=== PATIENT | female | born 1975 | race Caucasian/White ===

== ENCOUNTER 2018-03-14 10:11 | Emergency (ER) | payer MEDICAID ==
[2018-03-14 11:15] LABS: WHITE BLOOD COUNT 7.7 10^3/ul (4.8-10.8)
[2018-03-14 11:15] LABS: ABNORMAL IP MESSAGE 1; HEMATOCRIT 36.8 % (37.0-47.0); HEMOGLOBIN 11.2 g/dl (12.0-16.0); MEAN CORPUSCULAR HEMOGLOBIN 21.2 pg (29.0-33.0); MEAN CORPUSCULAR HGB CONC 30.4 g/dl (32.0-37.0); MEAN CORPUSCULAR VOLUME 69.6 fl (82.0-101.0); MEAN PLATELET VOLUME 10.1 fl (7.4-10.4); PLATELET COUNT 237 10^3/UL (140-415); RED BLOOD COUNT 5.29 10^6/ul (4.20-5.40)
[2018-03-14 11:32] LABS: ADD MAN DIFF? YES; POSITIVE DIFF @See below
[2018-03-14 12:34] LABS: UR CLARITY BLOODY (CLEAR); UR COLOR RED (YELLOW)
[2018-03-14 12:35] LABS: ADD UMIC YES; UR BILIRUBIN (Dip) NEGATIVE (NEGATIVE); UR BLOOD (Dip) 3+ mg/dL (NEGATIVE); UR GLUCOSE (Dip) NEGATIVE (NEGATIVE); UR KETONES (Dip) NEGATIVE (NEGATIVE); UR LEUKOCYTE ESTERASE (Dip) NEGATIVE Leu/ul (NEGATIVE); UR NITRITE (Dip) NEGATIVE (NEGATIVE); UR TOTAL PROTEIN (Dip) NEGATIVE (NEGATIVE); UR UROBILINOGEN (Dip) 0.2 E.U./dL mg/dL (NEGATIVE); URINE PH (Dip) 6.5 (5.0-9.0)
[2018-03-14 12:36] LABS: UR BACTERIA RARE /HPF (NONE SEEN); UR SQUAMOUS EPITHELIAL CELL RARE /HPF (FEW); URINE RBCS >200 /HPF (0)
[2018-03-14 12:45] LABS: ABO/RH TYPE 1 1
[2018-03-14 13:07] LABS: ANISOCYTOSIS 3+ (0-0); BAND NEUTROPHILS #M 0.1 10^3/ul (0.0-0.6); BAND NEUTROPHILS % (M) 2 % (0-4); BASOPHILS % (M) 1 % (0-2); EOSINOPHILS % (M) 1 % (0-7); LYMPHOCYTES #M 1.6 10^3/ul (0.8-2.9); LYMPHOCYTES % (M) 21 % (15-51); MICROCYTOSIS 3+ (0-0); MONOCYTE #M 0.3 10^3/ul (0.3-0.9); MONOCYTES % (M) 5 % (0-11); OVALOCYTES 1+ (0-0); PLATELET ESTIMATE NORMAL; POIKILOCYTOSIS 2+ (0-0); POLYCHROMASIA 3+ (0-0); REACTIVE LYMPHOCYTES #M 0.5 10^3/ul (0.0-0.0); REACTIVE LYMPHOCYTES% (M) 7 % (0-0); SEG NEUT #M 4.9 10^3/ul (1.6-7.5); SEGMENTED NEUTROPHILS (M) % 63 % (39-77); SMUDGE%M 17 % (0-0)
== END 2018-03-14 13:09 | disposition home or self-care (01) ==
LOC: FTE 10:11
PROVIDERS: Pediatrics
DX: O20.9 Hemorrhage in early pregnancy, unspecified (principal); R10.2 Pelvic and perineal pain; Z3A.11 11 weeks gestation of pregnancy
CPT/HCPCS: 36415; 76801; 81001; 82962; 84702; 85025; 86900; 86901; 99285-25

== ENCOUNTER 2018-09-18 12:48 | Outpatient (CLI) | payer MEDICAID ==
[2018-09-18] MEDS: ACETAMINOPHEN 500 MG TAB PO (14:08)
[2018-09-18 14:14] LABS: ADD MAN DIFF? NO
[2018-09-18 14:16] LABS: WHITE BLOOD COUNT 5.9 10^3/ul (4.8-10.8)
[2018-09-18 14:16] LABS: BASOPHILS % 0.3 % (0.0-2.0); HEMATOCRIT 36.2 % (37.0-47.0); HEMOGLOBIN 11.8 g/dl (12.0-16.0); LYMPHOCYTES # 0.6 10^3/ul (0.8-2.9); LYMPHOCYTES % 10.3 % (15.0-51.0); MEAN CORPUSCULAR HEMOGLOBIN 27.3 pg (29.0-33.0); MEAN CORPUSCULAR HGB CONC 32.6 g/dl (32.0-37.0); MEAN CORPUSCULAR VOLUME 83.6 fl (82.0-101.0); MEAN PLATELET VOLUME 10.9 fl (7.4-10.4); MONOCYTE # 0.3 10^3/ul (0.3-0.9); MONOCYTES % 5.5 % (0.0-11.0); NEUTROPHIL # 4.9 10^3/ul (1.6-7.5); NEUTROPHILS % 83.4 % (39.0-77.0); PLATELET COUNT 151 10^3/UL (140-415); RED BLOOD COUNT 4.33 10^6/ul (4.20-5.40); RED CELL DISTRIBUTION WIDTH 14.2 % (11.5-14.5)
[2018-09-18 14:35] LABS: ALANINE AMINOTRANSFERASE 19 IU/L (13-69); ALBUMIN 3.9 g/dl (3.3-4.9); ALKALINE PHOSPHATASE 135 IU/L (42-121); ANION GAP 11 (5-13); ASPARTATE AMINO TRANSFERASE 38 IU/L (15-46); BILIRUBIN,INDIRECT 0.3 mg/dl (0-1.1); BILIRUBIN,TOTAL 0.3 mg/dl (0.2-1.3); BLOOD UREA NITROGEN 4 mg/dl (7-20); CALCIUM 9.1 mg/dl (8.4-10.2); CARBON DIOXIDE 21 mmol/L (21-31); CHLORIDE 104 mmol/L (97-110); CREATININE 0.46 mg/dl (0.44-1.00); Estimated GFR > 60 mL/min (>60); GLUCOSE 96 mg/dl (70-220); POTASSIUM 4.3 mmol/L (3.5-5.1); SODIUM 136 mmol/L (135-144); TOTAL PROTEIN 7.8 g/dl (6.1-8.1); URIC ACID 4.3 mg/dl (3.1-7.9)
[2018-09-18 14:37] LABS: ADD UMIC YES; UR ASCORBIC ACID 40 mg/dL (NEGATIVE); UR BACTERIA FEW /HPF (NONE SEEN); UR BILIRUBIN (Dip) NEGATIVE (NEGATIVE); UR BLOOD (Dip) NEGATIVE (NEGATIVE); UR CLARITY SLIGHTLY CLOUDY (CLEAR); UR COLOR YELLOW (YELLOW); UR GLUCOSE (Dip) NEGATIVE (NEGATIVE); UR KETONES (Dip) 2+ mg/dL (NEGATIVE); UR LEUKOCYTE ESTERASE (Dip) 3+ Leu/ul (NEGATIVE); UR MUCUS FEW /HPF (NONE SEEN); UR NITRITE (Dip) NEGATIVE (NEGATIVE); UR RBC 4 /HPF (0-5); UR SPECIFIC GRAVITY (Dip) 1.017 (1.003-1.030); UR SQUAMOUS EPITHELIAL CELL MANY /HPF (FEW); UR TOTAL PROTEIN (Dip) NEGATIVE (NEGATIVE); UR UROBILINOGEN (Dip) NEGATIVE (NEGATIVE); UR WBC > 182 /HPF (0-5)
== END 2018-09-18 16:20 | disposition home or self-care (01) ==
LOC: OBT 12:48 → L-D 12:48 → OBT 16:20
DX: O24.414 Gestational diabetes mellitus in pregnancy, insulin controlled (principal); Z3A.37 37 weeks gestation of pregnancy
CPT/HCPCS: 80053; 81001; 84560; 85025

== ENCOUNTER 2018-09-30 08:15 | Inpatient (IN) | payer MEDICAID ==
[2018-09-30] MEDS ORDERED: LACTATED RINGER'S 1,000 ML IV (08:24)
[2018-09-30] MEDS ORDERED: LIDOCAINE 1% (MPF) 30 ML INJ INJ (08:30)
[2018-09-30] MEDS ORDERED: BUTORPHANOL 1 MG INJ IV (08:30)
[2018-09-30] MEDS ORDERED: BUTORPHANOL 2 MG INJ IV (08:30)
[2018-09-30] MEDS ORDERED: OXYTOCIN 30 UNITS/LR 500 ML IV (08:30)
[2018-09-30] MEDS ORDERED: METHYLERGONOVINE 0.2 MG INJ IM (08:30)
[2018-09-30] MEDS ORDERED: IBUPROFEN 600 MG TAB PO (08:30)
[2018-09-30 09:22] LABS: ADD MAN DIFF? NO
[2018-09-30 09:30] LABS: WHITE BLOOD COUNT 7.3 10^3/ul (4.8-10.8)
[2018-09-30 09:30] LABS: BASOPHILS % 0.3 % (0.0-2.0); EOSINOPHILS # 0.1 10^3/ul (0.0-0.5); EOSINOPHILS % 0.8 % (0.0-7.0); HEMOGLOBIN 12.2 g/dl (12.0-16.0); LYMPHOCYTES % 26.8 % (15.0-51.0); MEAN CORPUSCULAR HEMOGLOBIN 27.4 pg (29.0-33.0); MEAN CORPUSCULAR HGB CONC 33.9 g/dl (32.0-37.0); MEAN CORPUSCULAR VOLUME 80.7 fl (82.0-101.0); MEAN PLATELET VOLUME 10.9 fl (7.4-10.4); MONOCYTE # 0.5 10^3/ul (0.3-0.9); MONOCYTES % 6.6 % (0.0-11.0); NEUTROPHIL # 4.8 10^3/ul (1.6-7.5); NEUTROPHILS % 65.1 % (39.0-77.0); PLATELET COUNT 169 10^3/UL (140-415); RED BLOOD COUNT 4.46 10^6/ul (4.20-5.40); RED CELL DISTRIBUTION WIDTH 13.9 % (11.5-14.5)
[2018-09-30 09:32] LABS: ADD UMIC YES; UR ASCORBIC ACID NEGATIVE (NEGATIVE); UR BILIRUBIN (Dip) NEGATIVE (NEGATIVE); UR BLOOD (Dip) 1+ mg/dL (NEGATIVE); UR CLARITY SLIGHTLY CLOUDY (CLEAR); UR COLOR YELLOW (YELLOW); UR GLUCOSE (Dip) NEGATIVE (NEGATIVE); UR KETONES (Dip) NEGATIVE (NEGATIVE); UR LEUKOCYTE ESTERASE (Dip) 1+ Leu/ul (NEGATIVE); UR NITRITE (Dip) NEGATIVE (NEGATIVE); UR RBC 0 /HPF (0-5); UR SPECIFIC GRAVITY (Dip) 1.009 (1.003-1.030); UR SQUAMOUS EPITHELIAL CELL FEW /HPF (FEW); UR TOTAL PROTEIN (Dip) NEGATIVE (NEGATIVE); UR UROBILINOGEN (Dip) NEGATIVE (NEGATIVE); UR WBC 11 /HPF (0-5)
[2018-09-30 09:52] LABS: ALANINE AMINOTRANSFERASE 16 IU/L (13-69); ALBUMIN 3.8 g/dl (3.3-4.9); ALBUMIN/GLOBULIN RATIO 0.97; ALKALINE PHOSPHATASE 150 IU/L (42-121); ANION GAP 11 (5-13); ASPARTATE AMINO TRANSFERASE 23 IU/L (15-46); BILIRUBIN,INDIRECT 0.3 mg/dl (0-1.1); BILIRUBIN,TOTAL 0.3 mg/dl (0.2-1.3); BLOOD UREA NITROGEN 6 mg/dl (7-20); CARBON DIOXIDE 23 mmol/L (21-31); CHLORIDE 105 mmol/L (97-110); CREATININE 0.43 mg/dl (0.44-1.00); Estimated GFR > 60 mL/min (>60); GLUCOSE 101 mg/dl (70-220); POTASSIUM 3.8 mmol/L (3.5-5.1); SODIUM 139 mmol/L (135-144); TOTAL PROTEIN 7.7 g/dl (6.1-8.1); URIC ACID 4.1 mg/dl (3.1-7.9)
[2018-09-30 09:53] LABS: PARTIAL THROMBOPLASTIN TIME 25.4 Sec (23.0-35.0); PROTIME 12.3 Sec (11.9-14.9)
[2018-09-30] MEDS: MISOPROSTOL 50 MCG CAPSULE PO ×4 (10:33→21:00)
[2018-09-30] MEDS: LACTATED RINGER'S 1,000 ML IV ×2 (10:34→20:41)
[2018-09-30] MEDS: DEXTROSE 5%-LR 1,000 ML IV ×2 (11:21→19:13)
[2018-09-30 16:23] LABS: RAPID PLASMA REAGIN NONREACTIVE (NR)
[2018-09-30] MEDS: OXYTOCIN 30 UNITS/LR 500 ML IV (20:40)
[2018-09-30] MEDS ORDERED: ONDANSETRON 4 MG INJ IV (22:30)
[2018-09-30] MEDS ORDERED: NALOXONE (0.4 MG/ML) INJ IV (22:30)
[2018-10-01] MEDS: DEXTROSE 5%-LR 1,000 ML IV (00:24)
[2018-10-01] MEDS: LACTATED RINGER'S 1,000 ML IV ×5 (00:24→21:55)
[2018-10-01] MEDS: MISOPROSTOL 50 MCG CAPSULE PO ×2 (01:00→05:00)
[2018-10-01] MEDS: FENTAnyl 2MCG/ML-ROPIV 0.2% 100 ML BAG EPI ×3 (01:35→21:19)
[2018-10-01] MEDS: DIPHENHYDRAMINE 50 MG INJ IV (02:37)
[2018-10-01] MEDS: CARBOPROST 250 MCG INJ IM (20:08)
[2018-10-01] MEDS: MISOPROSTOL 200 MCG TAB PR (20:09)
[2018-10-01] MEDS: PIPER-TAZO 3.375 GM IV (PMX) 100 ML IVPB (20:52)
[2018-10-01 21:08] LABS: WHITE BLOOD COUNT 18.4 10^3/ul (4.8-10.8)
[2018-10-01 21:08] LABS: HEMATOCRIT 30.5 % (37.0-47.0); HEMOGLOBIN 10.2 g/dl (12.0-16.0); MEAN CORPUSCULAR HEMOGLOBIN 28.3 pg (29.0-33.0); MEAN CORPUSCULAR HGB CONC 33.4 g/dl (32.0-37.0); MEAN CORPUSCULAR VOLUME 84.5 fl (82.0-101.0); MEAN PLATELET VOLUME 11.4 fl (7.4-10.4); PLATELET COUNT 207 10^3/UL (140-415); RED BLOOD COUNT 3.61 10^6/ul (4.20-5.40); RED CELL DISTRIBUTION WIDTH 14.5 % (11.5-14.5)
[2018-10-01 21:09] LABS: POSITIVE DIFF @See below
[2018-10-01 21:10] LABS: ADD MAN DIFF? YES
[2018-10-01] MEDS: OXYTOCIN 30 UNITS/LR 500 ML IV ×2 (21:56)
[2018-10-01 22:54] LABS: ANISOCYTOSIS 3+ (0-0); BAND NEUTROPHILS #M 0.7 10^3/ul (0.0-0.6); BAND NEUTROPHILS % (M) 4 % (0-4); BURR CELLS 2+ (0-0); LYMPHOCYTES #M 1.1 10^3/ul (0.8-2.9); LYMPHOCYTES % (M) 6 % (15-51); MICROCYTOSIS 3+ (0-0); MONOCYTE #M 0.3 10^3/ul (0.3-0.9); MONOCYTES % (M) 2 % (0-11); PLATELET ESTIMATE NORMAL; POIKILOCYTOSIS 1+ (0-0); POLYCHROMASIA 1+ (0-0); SEG NEUT #M 16.3 10^3/ul (1.6-7.5); SEGMENTED NEUTROPHILS (M) % 88 % (39-77); SMUDGE%M 24 % (0-0)
[2018-10-01] MEDS ORDERED: DIBUCAINE 1% 30 GM OINT TOP (23:30)
[2018-10-01] MEDS ORDERED: ACETAMINOPHEN 325 MG TAB PO (23:30)
[2018-10-01] MEDS ORDERED: OXYTOCIN 30 UNITS/LR 500 ML IV (23:30)
[2018-10-01] MEDS ORDERED: CARBOPROST 250 MCG INJ IM (23:30)
[2018-10-01] MEDS ORDERED: MISOPROSTOL 200 MCG TAB PR (23:30)
[2018-10-02] MEDS ORDERED: PIPER-TAZO 3.375 GM IV (PMX) 100 ML IVPB
[2018-10-02] MEDS: PIPER-TAZO 3.375 GM IV (PMX) 100 ML IVPB ×3 (00:50→11:55)
[2018-10-02] MEDS: LACTATED RINGER'S 1,000 ML IV* ×4 (04:40→23:08)
[2018-10-02] MEDS: IBUPROFEN 600 MG TAB PO ×4 (05:42→18:13)
[2018-10-02] MEDS: FENTAnyl 2MCG/ML-ROPIV 0.2% 100 ML BAG EPI (05:44)
[2018-10-02 06:42] LABS: WHITE BLOOD COUNT 17.2 10^3/ul (4.8-10.8)
[2018-10-02 06:42] LABS: HEMATOCRIT 20.2 % (37.0-47.0); MEAN CORPUSCULAR HEMOGLOBIN 28.2 pg (29.0-33.0); MEAN CORPUSCULAR HGB CONC 34.7 g/dl (32.0-37.0); MEAN CORPUSCULAR VOLUME 81.5 fl (82.0-101.0); MEAN PLATELET VOLUME 11.2 fl (7.4-10.4); PLATELET COUNT 153 10^3/UL (140-415); RED BLOOD COUNT 2.48 10^6/ul (4.20-5.40); RED CELL DISTRIBUTION WIDTH 14.3 % (11.5-14.5)
[2018-10-02 06:43] LABS: POSITIVE DIFF @See below
[2018-10-02 06:44] LABS: ADD MAN DIFF? YES
[2018-10-02] MEDS: SENNA/DOCUSATE NA (8.6MG/50MG) TAB PO ×2 (09:00→21:35)
[2018-10-02 09:26] LABS: ANISOCYTOSIS 3+ (0-0); BAND NEUTROPHILS #M 2.5 10^3/ul (0.0-0.6); BAND NEUTROPHILS % (M) 15 % (0-4); BURR CELLS 1+ (0-0); GIANT THROMBO% (M) 2 % (0-0); LYMPHOCYTES % (M) 6 % (15-51); MICROCYTOSIS 3+ (0-0); MONOCYTE #M 0.8 10^3/ul (0.3-0.9); MONOCYTES % (M) 5 % (0-11); OVALOCYTES 1+ (0-0); PLATELET ESTIMATE NORMAL; POIKILOCYTOSIS 1+ (0-0); POLYCHROMASIA 3+ (0-0); SEG NEUT #M 13.2 10^3/ul (1.6-7.5); SEGMENTED NEUTROPHILS (M) % 74 % (39-77); SMUDGE%M 6 % (0-0)
[2018-10-02] MEDS: FERROUS SULFATE (EC) 325 MG TAB PO (21:35)
[2018-10-03] MEDS: IBUPROFEN 600 MG TAB PO ×5 (03:02→17:49)
[2018-10-03] MEDS: LACTATED RINGER'S 1,000 ML IV* ×3 (07:08→23:08)
[2018-10-03 08:59] LABS: ADD MAN DIFF? NO
[2018-10-03] MEDS: DIPHTH/TET/ACEL PERTUSS (ADULT) 0.5 ML VIAL IM* (09:00)
[2018-10-03 09:06] LABS: BASOPHIL # 0.1 10^3/ul (0.0-0.1); BASOPHILS % 0.3 % (0.0-2.0); HEMATOCRIT 20.6 % (37.0-47.0); HEMOGLOBIN 7.1 g/dl (12.0-16.0); LYMPHOCYTES # 1.5 10^3/ul (0.8-2.9); LYMPHOCYTES % 6.8 % (15.0-51.0); MEAN CORPUSCULAR HEMOGLOBIN 28.2 pg (29.0-33.0); MEAN CORPUSCULAR HGB CONC 34.5 g/dl (32.0-37.0); MEAN CORPUSCULAR VOLUME 81.7 fl (82.0-101.0); MEAN PLATELET VOLUME 11.4 fl (7.4-10.4); MONOCYTE # 0.7 10^3/ul (0.3-0.9); NEUTROPHIL # 18.9 10^3/ul (1.6-7.5); PLATELET COUNT 198 10^3/UL (140-415); RED BLOOD COUNT 2.52 10^6/ul (4.20-5.40); RED CELL DISTRIBUTION WIDTH 14.6 % (11.5-14.5)
[2018-10-03 09:07] LABS: POSITIVE DIFF @See below
[2018-10-03 09:54] LABS: ANISOCYTOSIS 3+ (0-0); BAND NEUTROPHILS #M 1.5 10^3/ul (0.0-0.6); BAND NEUTROPHILS % (M) 7 % (0-4); GIANT THROMBO% (M) 1 % (0-0); LYMPHOCYTES #M 1.3 10^3/ul (0.8-2.9); LYMPHOCYTES % (M) 6 % (15-51); MICROCYTOSIS 3+ (0-0); MONOCYTE #M 0.4 10^3/ul (0.3-0.9); MONOCYTES % (M) 2 % (0-11); PLATELET ESTIMATE NORMAL; POLYCHROMASIA 3+ (0-0); SEGMENTED NEUTROPHILS (M) % 85 % (39-77); SMUDGE%M 1 % (0-0)
[2018-10-03] MEDS: SENNA/DOCUSATE NA (8.6MG/50MG) TAB PO ×2 (12:09→21:25)
[2018-10-03] MEDS: FERROUS SULFATE (EC) 325 MG TAB PO ×3 (12:09→21:24)
[2018-10-03 13:12] LABS: RHOGAM PROFILE 1 1
[2018-10-03 14:28] LABS: ADD UMIC YES; UR ASCORBIC ACID NEGATIVE (NEGATIVE); UR BACTERIA FEW /HPF (NONE SEEN); UR BILIRUBIN (Dip) NEGATIVE (NEGATIVE); UR BLOOD (Dip) 3+ mg/dL (NEGATIVE); UR CLARITY SLIGHTLY CLOUDY (CLEAR); UR COLOR YELLOW (YELLOW); UR GLUCOSE (Dip) NEGATIVE (NEGATIVE); UR KETONES (Dip) NEGATIVE (NEGATIVE); UR LEUKOCYTE ESTERASE (Dip) 3+ Leu/ul (NEGATIVE); UR NITRITE (Dip) NEGATIVE (NEGATIVE); UR RBC 66 /HPF (0-5); UR SPECIFIC GRAVITY (Dip) 1.012 (1.003-1.030); UR SQUAMOUS EPITHELIAL CELL FEW /HPF (FEW); UR TOTAL PROTEIN (Dip) NEGATIVE (NEGATIVE); UR UROBILINOGEN (Dip) NEGATIVE (NEGATIVE); UR WBC 68 /HPF (0-5)
[2018-10-03] MEDS ORDERED: GLUCOSE GEL 15 GRAM TUBE BUCCAL (14:30)
[2018-10-03] MEDS ORDERED: GLUCOSE GEL 15 GRAM TUBE PO ×2 (14:30)
[2018-10-03] MEDS ORDERED: DEXTROSE 50% 50 ML SYRINGE IV ×2 (14:30)
[2018-10-03] MEDS ORDERED: GLUCAGON 1 MG INJ IM (14:30)
[2018-10-03 16:03] LABS: IRON 24 ug/dl (35-150)
[2018-10-03 16:12] LABS: % IRON SATURATION 8 % SAT (22-52); TOTAL IRON BINDING CAPACITY 318 ug/dl (241-421)
[2018-10-03 16:40] LABS: FERRITIN 85.8 ng/ml (6.2-137.0)
[2018-10-03 16:53] LABS: HEPATITIS C VIRAL ANTIBODY NEGATIVE (NEGATIVE)
[2018-10-04] MEDS: IBUPROFEN 600 MG TAB PO ×5 (00:14→23:09)
[2018-10-04] MEDS: ACCU-CHEK XX ×6 (02:00→20:05)
[2018-10-04 06:52] LABS: ADD MAN DIFF? NO
[2018-10-04 06:56] LABS: WHITE BLOOD COUNT 15.3 10^3/ul (4.8-10.8)
[2018-10-04 06:56] LABS: ABNORMAL IP MESSAGE 1; BASOPHILS % 0.2 % (0.0-2.0); EOSINOPHILS % 0.2 % (0.0-7.0); HEMATOCRIT 17.9 % (37.0-47.0); LYMPHOCYTES # 1.4 10^3/ul (0.8-2.9); LYMPHOCYTES % 9.1 % (15.0-51.0); MEAN CORPUSCULAR HEMOGLOBIN 27.5 pg (29.0-33.0); MEAN CORPUSCULAR HGB CONC 33.5 g/dl (32.0-37.0); MEAN CORPUSCULAR VOLUME 82.1 fl (82.0-101.0); MEAN PLATELET VOLUME 11.1 fl (7.4-10.4); MONOCYTE # 0.6 10^3/ul (0.3-0.9); MONOCYTES % 4.2 % (0.0-11.0); NEUTROPHIL # 12.8 10^3/ul (1.6-7.5); NEUTROPHILS % 83.9 % (39.0-77.0); PLATELET COUNT 177 10^3/UL (140-415); RED BLOOD COUNT 2.18 10^6/ul (4.20-5.40); RED CELL DISTRIBUTION WIDTH 14.5 % (11.5-14.5)
[2018-10-04 07:00] LABS: POSITIVE DIFF @See below
[2018-10-04] MEDS: INSULIN ASPART [NOVOLOG] 3 ML PEN SC ×4 (08:05→21:00)
[2018-10-04] MEDS: FERROUS SULFATE (EC) 325 MG TAB PO ×3 (09:39→21:00)
[2018-10-04] MEDS: SENNA/DOCUSATE NA (8.6MG/50MG) TAB PO ×2 (09:39→21:00)
[2018-10-04 09:45] LABS: ANISOCYTOSIS 3+ (0-0); LYMPHOCYTES #M 1.6 10^3/ul (0.8-2.9); LYMPHOCYTES % (M) 11 % (15-51); MICROCYTOSIS 3+ (0-0); MONOCYTE #M 0.6 10^3/ul (0.3-0.9); MONOCYTES % (M) 4 % (0-11); PLATELET ESTIMATE NORMAL; POIKILOCYTOSIS 2+ (0-0); POLYCHROMASIA 3+ (0-0); SEGMENTED NEUTROPHILS (M) % 85 % (39-77); SMUDGE%M 44 % (0-0)
[2018-10-04] MEDS: SOD FERRIC GLUC COMPLX 125 MG in SOD CHLORIDE 0.9% 100 ML IVPB ×2 (10:31→13:29)
[2018-10-04 13:58] LABS: ADD MAN DIFF? NO
[2018-10-04 14:00] LABS: WHITE BLOOD COUNT 16.7 10^3/ul (4.8-10.8)
[2018-10-04 14:00] LABS: ABNORMAL IP MESSAGE 1; BASOPHILS % 0.2 % (0.0-2.0); EOSINOPHILS % 0.2 % (0.0-7.0); HEMATOCRIT 18.4 % (37.0-47.0); LYMPHOCYTES # 1.4 10^3/ul (0.8-2.9); LYMPHOCYTES % 8.6 % (15.0-51.0); MEAN CORPUSCULAR HEMOGLOBIN 27.6 pg (29.0-33.0); MEAN CORPUSCULAR HGB CONC 33.7 g/dl (32.0-37.0); MEAN CORPUSCULAR VOLUME 81.8 fl (82.0-101.0); MEAN PLATELET VOLUME 10.8 fl (7.4-10.4); MONOCYTE # 0.6 10^3/ul (0.3-0.9); MONOCYTES % 3.5 % (0.0-11.0); NEUTROPHIL # 14.2 10^3/ul (1.6-7.5); NEUTROPHILS % 85.1 % (39.0-77.0); NUCLEATED RED BLOOD CELLS% 0.1 /100WBC (0.0-0.0); PLATELET COUNT 215 10^3/UL (140-415); RED BLOOD COUNT 2.25 10^6/ul (4.20-5.40); RED CELL DISTRIBUTION WIDTH 14.5 % (11.5-14.5)
[2018-10-04 14:06] LABS: HEMOGLOBIN 6.2 g/dl (12.0-16.0); POSITIVE DIFF @See below
[2018-10-04] MEDS: FOLIC ACID 1 MG TAB PO (21:00)
[2018-10-05] MEDS: IBUPROFEN 600 MG TAB PO ×3 (05:28→18:01)
[2018-10-05 06:22] LABS: WHITE BLOOD COUNT 12.9 10^3/ul (4.8-10.8)
[2018-10-05 06:22] LABS: ABNORMAL IP MESSAGE 1; HEMATOCRIT 17.9 % (37.0-47.0); MEAN CORPUSCULAR HEMOGLOBIN 27.9 pg (29.0-33.0); MEAN CORPUSCULAR HGB CONC 33.5 g/dl (32.0-37.0); MEAN CORPUSCULAR VOLUME 83.3 fl (82.0-101.0); MEAN PLATELET VOLUME 10.9 fl (7.4-10.4); NUCLEATED RED BLOOD CELLS% 0.5 /100WBC (0.0-0.0); PLATELET COUNT 199 10^3/UL (140-415); RED BLOOD COUNT 2.15 10^6/ul (4.20-5.40); RED CELL DISTRIBUTION WIDTH 14.2 % (11.5-14.5)
[2018-10-05 06:49] LABS: ANION GAP 4 (5-13); BLOOD UREA NITROGEN 9 mg/dl (7-20); CALCIUM 8.2 mg/dl (8.4-10.2); CARBON DIOXIDE 26 mmol/L (21-31); CHLORIDE 109 mmol/L (97-110); CREATININE 0.47 mg/dl (0.44-1.00); Estimated GFR > 60 mL/min (>60); GLUCOSE 83 mg/dl (70-220); POTASSIUM 3.2 mmol/L (3.5-5.1); SODIUM 139 mmol/L (135-144)
[2018-10-05 06:53] LABS: POSITIVE DIFF @See below
[2018-10-05 06:54] LABS: ADD MAN DIFF? YES
[2018-10-05] MEDS: INSULIN ASPART [NOVOLOG] 3 ML PEN SC ×4 (08:05→21:00)
[2018-10-05 08:09] LABS: ANISOCYTOSIS 3+ (0-0); BAND NEUTROPHILS #M 0.5 10^3/ul (0.0-0.6); BAND NEUTROPHILS % (M) 4 % (0-4); ERYTHROBLAST% (NRBC) (M) 2 % (0-0); LYMPHOCYTES % (M) 16 % (15-51); MICROCYTOSIS 3+ (0-0); MONOCYTE #M 0.2 10^3/ul (0.3-0.9); MONOCYTES % (M) 2 % (0-11); PLATELET ESTIMATE NORMAL; POIKILOCYTOSIS 1+ (0-0); POLYCHROMASIA 3+ (0-0); PROMYELOCYTES #M 0.1 10^3/ul (0-0); PROMYELOCYTES % (M) 1 % (0-0); SEGMENTED NEUTROPHILS (M) % 77 % (39-77); SMUDGE%M 1 % (0-0)
[2018-10-05] MEDS: ACCU-CHEK XX ×7 (08:52→20:05)
[2018-10-05] MEDS: SENNA/DOCUSATE NA (8.6MG/50MG) TAB PO ×2 (09:17→20:35)
[2018-10-05] MEDS: FERROUS SULFATE (EC) 325 MG TAB PO ×3 (09:18→20:35)
[2018-10-05] MEDS: FOLIC ACID 1 MG TAB PO (09:18)
[2018-10-05] MEDS: POTASSIUM CHLORIDE (SR) 20 MEQ TAB PO ×2 (11:03→14:58)
[2018-10-05] MEDS: SOD FERRIC GLUC COMPLX 125 MG in SOD CHLORIDE 0.9% 100 ML IVPB ×2 (11:04→13:00)
[2018-10-05] MEDS ORDERED: SOD FERRIC GLUC COMPLX 125 MG in SOD CHLORIDE 0.9% 100 ML IVPB (13:00)
[2018-10-05 22:41] LABS: ADD MAN DIFF? NO
[2018-10-05 22:43] LABS: WHITE BLOOD COUNT 14.6 10^3/ul (4.8-10.8)
[2018-10-05 22:43] LABS: ABNORMAL IP MESSAGE 1; BASOPHIL # 0.1 10^3/ul (0.0-0.1); BASOPHILS % 0.5 % (0.0-2.0); EOSINOPHILS # 0.1 10^3/ul (0.0-0.5); EOSINOPHILS % 0.8 % (0.0-7.0); HEMATOCRIT 19.3 % (37.0-47.0); LYMPHOCYTES % 13.8 % (15.0-51.0); MEAN CORPUSCULAR HEMOGLOBIN 27.3 pg (29.0-33.0); MEAN CORPUSCULAR HGB CONC 32.6 g/dl (32.0-37.0); MEAN CORPUSCULAR VOLUME 83.5 fl (82.0-101.0); MEAN PLATELET VOLUME 9.7 fl (7.4-10.4); MONOCYTES % 6.5 % (0.0-11.0); NEUTROPHILS % 68.1 % (39.0-77.0); NUCLEATED RED BLOOD CELLS # 0.2 10^3/ul (0.0-0.0); NUCLEATED RED BLOOD CELLS% 1.1 /100WBC (0.0-0.0); PLATELET COUNT 215 10^3/UL (140-415); RED BLOOD COUNT 2.31 10^6/ul (4.20-5.40); RED CELL DISTRIBUTION WIDTH 14.3 % (11.5-14.5)
[2018-10-05 22:48] LABS: HEMOGLOBIN 6.3 g/dl (12.0-16.0); POSITIVE DIFF @See below
[2018-10-05 23:01] LABS: ALANINE AMINOTRANSFERASE 25 IU/L (13-69); ALBUMIN 2.9 g/dl (3.3-4.9); ALBUMIN/GLOBULIN RATIO 0.93; ALKALINE PHOSPHATASE 110 IU/L (42-121); ANION GAP 3 (5-13); ASPARTATE AMINO TRANSFERASE 24 IU/L (15-46); BILIRUBIN,INDIRECT 0.3 mg/dl (0-1.1); BILIRUBIN,TOTAL 0.3 mg/dl (0.2-1.3); BLOOD UREA NITROGEN 10 mg/dl (7-20); CALCIUM 8.5 mg/dl (8.4-10.2); CARBON DIOXIDE 27 mmol/L (21-31); CHLORIDE 108 mmol/L (97-110); CREATININE 0.47 mg/dl (0.44-1.00); Estimated GFR > 60 mL/min (>60); GLUCOSE 90 mg/dl (70-220); POTASSIUM 3.7 mmol/L (3.5-5.1); SODIUM 138 mmol/L (135-144); URIC ACID 3.8 mg/dl (3.1-7.9)
[2018-10-05 23:23] LABS: ADD UMIC YES; UR ASCORBIC ACID NEGATIVE (NEGATIVE); UR BACTERIA FEW /HPF (NONE SEEN); UR BILIRUBIN (Dip) NEGATIVE (NEGATIVE); UR BLOOD (Dip) 3+ mg/dL (NEGATIVE); UR CLARITY CLOUDY (CLEAR); UR COLOR RED (YELLOW); UR GLUCOSE (Dip) NEGATIVE (NEGATIVE); UR KETONES (Dip) NEGATIVE (NEGATIVE); UR LEUKOCYTE ESTERASE (Dip) 3+ Leu/ul (NEGATIVE); UR NITRITE (Dip) NEGATIVE (NEGATIVE); UR RBC > 182 /HPF (0-5); UR SPECIFIC GRAVITY (Dip) 1.006 (1.003-1.030); UR SQUAMOUS EPITHELIAL CELL FEW /HPF (FEW); UR TOTAL PROTEIN (Dip) 2+ mg/dl (NEGATIVE); UR UROBILINOGEN (Dip) NEGATIVE (NEGATIVE); UR WBC > 182 /HPF (0-5)
[2018-10-06] MEDS: MAGNESIUM SULFATE 4 GM/100 ML 100 ML IV (01:37)
[2018-10-06] MEDS: IBUPROFEN 600 MG TAB PO ×5 (01:45→23:46)
[2018-10-06] MEDS: ACCU-CHEK XX (01:48)
[2018-10-06] MEDS: LACTATED RINGER'S 1,000 ML IV ×2 (01:49→12:50)
[2018-10-06] MEDS: MAGNESIUM SULFATE 20 GM/500 ML 500 ML IV ×3 (02:14→22:36)
[2018-10-06] MEDS: hydrALAzine 20 MG INJ IV ×3 (03:58→20:48)
[2018-10-06 08:03] LABS: WHITE BLOOD COUNT 12.5 10^3/ul (4.8-10.8)
[2018-10-06 08:03] LABS: ABNORMAL IP MESSAGE 1; HEMATOCRIT 20.8 % (37.0-47.0); MEAN CORPUSCULAR HEMOGLOBIN 27.2 pg (29.0-33.0); MEAN CORPUSCULAR HGB CONC 32.7 g/dl (32.0-37.0); MEAN CORPUSCULAR VOLUME 83.2 fl (82.0-101.0); MEAN PLATELET VOLUME 10.4 fl (7.4-10.4); PLATELET COUNT 250 10^3/UL (140-415); RED CELL DISTRIBUTION WIDTH 14.1 % (11.5-14.5)
[2018-10-06] MEDS: INSULIN ASPART [NOVOLOG] 3 ML PEN SC ×4 (08:05→21:00)
[2018-10-06 08:07] LABS: POSITIVE DIFF @See below
[2018-10-06 08:11] LABS: ADD MAN DIFF? YES; HEMOGLOBIN 6.8 g/dl (12.0-16.0)
[2018-10-06 08:31] LABS: MAGNESIUM 4.6 mg/dl (1.7-2.5)
[2018-10-06] MEDS: FERROUS SULFATE (EC) 325 MG TAB PO ×3 (08:53→20:48)
[2018-10-06] MEDS: SENNA/DOCUSATE NA (8.6MG/50MG) TAB PO ×2 (08:53→21:12)
[2018-10-06 09:43] LABS: ANISOCYTOSIS 3+ (0-0); BAND NEUTROPHILS #M 1.2 10^3/ul (0.0-0.6); BAND NEUTROPHILS % (M) 10 % (0-4); ERYTHROBLAST% (NRBC) (M) 2 % (0-0); LYMPHOCYTES #M 0.8 10^3/ul (0.8-2.9); LYMPHOCYTES % (M) 7 % (15-51); METAMYELOCYTES #M 0.7 10^3/ul (0.0-0.0); METAMYELOCYTES %M 6 % (0-0); MICROCYTOSIS 3+ (0-0); MONOCYTE #M 1.5 10^3/ul (0.3-0.9); MONOCYTES % (M) 12 % (0-11); MYELOCYTES #M 0.5 10^3/ul (0.0-0.0); MYELOCYTES % (M) 4 % (0-0); OVALOCYTES 1+ (0-0); PLATELET ESTIMATE NORMAL; POLYCHROMASIA 3+ (0-0); PROMYELOCYTES #M 0.1 10^3/ul (0-0); PROMYELOCYTES % (M) 1 % (0-0); SEG NEUT #M 7.7 10^3/ul (1.6-7.5); SEGMENTED NEUTROPHILS (M) % 60 % (39-77); SMUDGE%M 3 % (0-0)
[2018-10-06] MEDS: FOLIC ACID 1 MG TAB PO (12:49)
[2018-10-06] MEDS: SOD FERRIC GLUC COMPLX 125 MG in SOD CHLORIDE 0.9% 100 ML IVPB ×2 (13:00→17:00)
[2018-10-06 13:49] LABS: MAGNESIUM 4.7 mg/dl (1.7-2.5)
[2018-10-06 19:22] LABS: MAGNESIUM 5.4 mg/dl (1.7-2.5)
[2018-10-07 01:01] LABS: MAGNESIUM 5.4 mg/dl (1.7-2.5)
[2018-10-07] MEDS: LACTATED RINGER'S 1,000 ML IV (01:49)
[2018-10-07] MEDS: ACCU-CHEK XX ×6 (02:00→20:05)
[2018-10-07] MEDS: HYDROCODONE/APAP (5/325) TAB PO (04:50)
[2018-10-07] MEDS: IBUPROFEN 600 MG TAB PO ×3 (06:34→16:01)
[2018-10-07] MEDS: SOD FERRIC GLUC COMPLX 125 MG in SOD CHLORIDE 0.9% 100 ML IVPB (06:43)
[2018-10-07] MEDS: INSULIN ASPART [NOVOLOG] 3 ML PEN SC ×4 (08:05→21:00)
[2018-10-07] MEDS ORDERED: LABETALOL 200 MG TAB PO (09:00)
[2018-10-07 09:19] LABS: ADD MAN DIFF? NO
[2018-10-07] MEDS: FERROUS SULFATE (EC) 325 MG TAB PO ×3 (09:29→21:46)
[2018-10-07] MEDS: NIFEdipine (XL) 30 MG TAB PO ×2 (09:29→21:00)
[2018-10-07] MEDS: FOLIC ACID 1 MG TAB PO (09:29)
[2018-10-07] MEDS: SENNA/DOCUSATE NA (8.6MG/50MG) TAB PO ×2 (09:29→21:46)
[2018-10-07 09:30] LABS: WHITE BLOOD COUNT 12.2 10^3/ul (4.8-10.8)
[2018-10-07 09:30] LABS: ABNORMAL IP MESSAGE 1; BASOPHIL # 0.1 10^3/ul (0.0-0.1); BASOPHILS % 0.4 % (0.0-2.0); EOSINOPHILS # 0.1 10^3/ul (0.0-0.5); EOSINOPHILS % 1.1 % (0.0-7.0); HEMATOCRIT 22.7 % (37.0-47.0); HEMOGLOBIN 7.4 g/dl (12.0-16.0); LYMPHOCYTES # 1.6 10^3/ul (0.8-2.9); LYMPHOCYTES % 13.4 % (15.0-51.0); MEAN CORPUSCULAR HEMOGLOBIN 27.2 pg (29.0-33.0); MEAN CORPUSCULAR HGB CONC 32.6 g/dl (32.0-37.0); MEAN CORPUSCULAR VOLUME 83.5 fl (82.0-101.0); MEAN PLATELET VOLUME 10.2 fl (7.4-10.4); MONOCYTE # 0.9 10^3/ul (0.3-0.9); MONOCYTES % 6.9 % (0.0-11.0); NEUTROPHIL # 7.6 10^3/ul (1.6-7.5); NEUTROPHILS % 62.4 % (39.0-77.0); NUCLEATED RED BLOOD CELLS # 0.1 10^3/ul (0.0-0.0); NUCLEATED RED BLOOD CELLS% 0.9 /100WBC (0.0-0.0); PLATELET COUNT 287 10^3/UL (140-415); RED BLOOD COUNT 2.72 10^6/ul (4.20-5.40); RED CELL DISTRIBUTION WIDTH 14.6 % (11.5-14.5)
[2018-10-07 09:31] LABS: POSITIVE DIFF @See below
[2018-10-07 09:58] LABS: ANISOCYTOSIS 3+ (0-0); BAND NEUTROPHILS #M 1.3 10^3/ul (0.0-0.6); BAND NEUTROPHILS % (M) 11 % (0-4); EOSINOPHILS % (M) 1 % (0-7); ERYTHROBLAST% (NRBC) (M) 1 % (0-0); LYMPHOCYTES #M 1.4 10^3/ul (0.8-2.9); LYMPHOCYTES % (M) 12 % (15-51); METAMYELOCYTES #M 0.2 10^3/ul (0.0-0.0); METAMYELOCYTES %M 2 % (0-0); MICROCYTOSIS 3+ (0-0); MONOCYTE #M 0.6 10^3/ul (0.3-0.9); MONOCYTES % (M) 5 % (0-11); MYELOCYTES #M 0.1 10^3/ul (0.0-0.0); MYELOCYTES % (M) 1 % (0-0); PLATELET ESTIMATE NORMAL; POLYCHROMASIA 3+ (0-0); SEG NEUT #M 8.5 10^3/ul (1.6-7.5); SEGMENTED NEUTROPHILS (M) % 68 % (39-77)
[2018-10-07] MEDS ORDERED: NIFEdipine (XL) 30 MG TAB PO (19:30)
[2018-10-07] MEDS: NIFEdipine 10 MG CAP PO (21:45)
[2018-10-08] MEDS: IBUPROFEN 600 MG TAB PO ×5 (01:21→23:44)
[2018-10-08] MEDS: ACCU-CHEK XX ×7 (02:00→20:05)
[2018-10-08] MEDS: NIFEdipine (XL) 60 MG TAB PO (08:02)
[2018-10-08] MEDS: INSULIN ASPART [NOVOLOG] 3 ML PEN SC ×4 (08:05→21:00)
[2018-10-08] MEDS: FOLIC ACID 1 MG TAB PO (08:19)
[2018-10-08] MEDS: FERROUS SULFATE (EC) 325 MG TAB PO ×3 (08:19→20:36)
[2018-10-08] MEDS: SENNA/DOCUSATE NA (8.6MG/50MG) TAB PO ×2 (08:20→20:36)
[2018-10-08] MEDS: NIFEdipine (XL) 30 MG TAB PO ×2 (09:00→20:36)
[2018-10-08] MEDS: METOPROLOL (XL) 25 MG TAB PO (21:30)
[2018-10-09] MEDS: ACCU-CHEK XX ×5 (02:00→13:50)
[2018-10-09] MEDS: IBUPROFEN 600 MG TAB PO ×3 (06:00→18:00)
[2018-10-09 06:54] LABS: ADD MAN DIFF? NO
[2018-10-09 07:01] LABS: WHITE BLOOD COUNT 11.4 10^3/ul (4.8-10.8)
[2018-10-09 07:01] LABS: ABNORMAL IP MESSAGE 1; BASOPHIL # 0.1 10^3/ul (0.0-0.1); BASOPHILS % 0.7 % (0.0-2.0); EOSINOPHILS # 0.2 10^3/ul (0.0-0.5); EOSINOPHILS % 1.4 % (0.0-7.0); HEMATOCRIT 24.7 % (37.0-47.0); HEMOGLOBIN 8.1 g/dl (12.0-16.0); LYMPHOCYTES # 1.9 10^3/ul (0.8-2.9); LYMPHOCYTES % 16.4 % (15.0-51.0); MEAN CORPUSCULAR HEMOGLOBIN 27.5 pg (29.0-33.0); MEAN CORPUSCULAR HGB CONC 32.8 g/dl (32.0-37.0); MEAN CORPUSCULAR VOLUME 83.7 fl (82.0-101.0); MEAN PLATELET VOLUME 9.9 fl (7.4-10.4); MONOCYTE # 0.7 10^3/ul (0.3-0.9); MONOCYTES % 6.4 % (0.0-11.0); NEUTROPHIL # 7.5 10^3/ul (1.6-7.5); NEUTROPHILS % 65.7 % (39.0-77.0); NUCLEATED RED BLOOD CELLS% 0.3 /100WBC (0.0-0.0); PLATELET COUNT 335 10^3/UL (140-415); RED BLOOD COUNT 2.95 10^6/ul (4.20-5.40)
[2018-10-09 07:20] LABS: ANION GAP 10 (5-13); BLOOD UREA NITROGEN 8 mg/dl (7-20); CALCIUM 8.6 mg/dl (8.4-10.2); CARBON DIOXIDE 28 mmol/L (21-31); CHLORIDE 102 mmol/L (97-110); CREATININE 0.43 mg/dl (0.44-1.00); Estimated GFR > 60 mL/min (>60); GLUCOSE 93 mg/dl (70-220); POTASSIUM 3.2 mmol/L (3.5-5.1); SODIUM 140 mmol/L (135-144)
[2018-10-09 07:58] LABS: ADD UMIC YES; UR ASCORBIC ACID NEGATIVE (NEGATIVE); UR BILIRUBIN (Dip) NEGATIVE (NEGATIVE); UR BLOOD (Dip) 3+ mg/dL (NEGATIVE); UR CLARITY CLOUDY (CLEAR); UR COLOR YELLOW (YELLOW); UR GLUCOSE (Dip) NEGATIVE (NEGATIVE); UR KETONES (Dip) 1+ mg/dL (NEGATIVE); UR LEUKOCYTE ESTERASE (Dip) 3+ Leu/ul (NEGATIVE); UR NITRITE (Dip) NEGATIVE (NEGATIVE); UR RBC 142 /HPF (0-5); UR SPECIFIC GRAVITY (Dip) 1.009 (1.003-1.030); UR SQUAMOUS EPITHELIAL CELL FEW /HPF (FEW); UR TOTAL PROTEIN (Dip) 1+ mg/dl (NEGATIVE); UR UROBILINOGEN (Dip) NEGATIVE (NEGATIVE); UR WBC > 182 /HPF (0-5)
[2018-10-09] MEDS: INSULIN ASPART [NOVOLOG] 3 ML PEN SC ×2 (08:05→11:50)
[2018-10-09] MEDS: FERROUS SULFATE (EC) 325 MG TAB PO ×2 (08:50→14:19)
[2018-10-09] MEDS: SENNA/DOCUSATE NA (8.6MG/50MG) TAB PO (08:50)
[2018-10-09] MEDS: METOPROLOL (XL) 25 MG TAB PO (08:51)
[2018-10-09] MEDS: WITCH HAZEL/GLYCERIN PAD PR (08:51)
[2018-10-09] MEDS: NIFEdipine (XL) 30 MG TAB PO (08:51)
[2018-10-09] MEDS: BENZOCAINE 20% 56 ML SPRAY TOP (08:52)
[2018-10-09] MEDS: FOLIC ACID 1 MG TAB PO (09:35)
[2018-10-09] MEDS: POTASSIUM CHLORIDE (SR) 20 MEQ TAB PO (14:20)
[2018-10-10] MEDS ORDERED: METOPROLOL (XL) 50 MG TAB PO (09:00)
== END 2018-10-09 18:56 | disposition home or self-care (01) | DRG 768 ==
LOC: L-D 10-01 21:15 → PP1 10-02 15:05
PROC: 10E0XZZ Delivery of Products of Conception, External Approach (ICD-10-PCS; principal; 2018-09-30 08:00)
PROC: 0W3R7ZZ Control Bleeding in Genitourinary Tract, Via Natural or Artificial Opening (ICD-10-PCS; 2018-09-30 08:00)
PROC: 0KQM0ZZ Repair Perineum Muscle, Open Approach (ICD-10-PCS; 2018-09-30 08:00)
PROC: 3E033VJ Introduction of Other Hormone into Peripheral Vein, Percutaneous Approach (ICD-10-PCS; 2018-09-30 08:00)
DX: O14.93 Unspecified pre-eclampsia, third trimester (principal); Z37.0 Single live birth; O41.1230 Chorioamnionitis, third trimester, not applicable or unspecified; O24.419 Gestational diabetes mellitus in pregnancy, unspecified control; O75.89 Other specified complications of labor and delivery; Z3A.39 39 weeks gestation of pregnancy; O99.283 Endocrine, nutritional and metabolic diseases complicating pregnancy, third trimester; E88.81 Metabolic syndrome and other insulin resistance; O99.013 Anemia complicating pregnancy, third trimester; D50.9 Iron deficiency anemia, unspecified; O62.2 Other uterine inertia; O90.1 Disruption of perineal obstetric wound
CPT/HCPCS: 76815; 76856; 80048; 80053; 81001; 82728; 82962; 83540; 83735; 84443; 84560; 85025; 85384; 85610; 85730; 86592; 86803; 86850; 86870; 86885; 86900; 86901; 86920; 87070; 87086; 88307; 90686; 99464